=== PATIENT | female | born 1985 | race Caucasian/White ===

== ENCOUNTER 2018-09-28 15:42 | Inpatient (IN) | payer BC ==
[~2018-09-28] VITALS: Ht 154.9 cm; Wt 88.9 kg
[2018-09-28] MEDS ORDERED: LR 1,000 ML IV ONE (16:11)
[2018-09-28] MEDS ORDERED: CEFAZOLIN 2 GM IVPB PREMIX 50 ML IV ONE ×2 (16:15→17:30)
[2018-09-28 16:48] LABS: BILIRUBIN,URINE NEGATIVE (NEGATIVE); CLARITY/URINE CLEAR (CLEAR); COLOR,URINE YELLOW (YELLOW); GLUCOSE,URINE NEGATIVE (NEGATIVE); KETONES,URINE NEGATIVE (NEGATIVE); LEUKOCYTE ESTERASE ,URINE 1+ (NEGATIVE); NITRITE, URINE NEGATIVE (NEGATIVE); PH,URINE 5.5 (5.0-8.0); PROTEIN URINE NEGATIVE (NEGATIVE); UROBILINOGEN,URINE 0.2 (0.2-1.0)
[2018-09-28 16:50] LABS: BLOOD, URINE TRACE (NEGATIVE)
[2018-09-28 16:57] LABS: BASOPHILS % (AUTO) 0.3 % (0.0-2.0); EOSINOPHILS % (AUTO) 0.5 % (0.0-4.0); HEMATOCRIT 28.7 % (36-48); HEMOGLOBIN 9.3 g/dL (12.0-16.0); LYMPHOCYTES % (AUTO) 14.4 % (20.5-51.5); MEAN CORPUSCULAR HEMOGLOBIN 23 pg (27-31); MEAN CORPUSCULAR HGB CONC 32 % (32-36); MEAN CORPUSCULAR VOLUME 73 fL (79.0-98.0); MONOCYTES % (AUTO) 5.6 % (1.7-9.3); NEUTROPHILS # (AUTO) 7.1 K/uL (1.8-7.7); NEUTROPHILS % (AUTO) 79.2 % (40.0-70.0); PLATELET COUNT (AUTO) 376 K/uL (130-430); RED BLOOD CELL COUNT(AUTO) 3.95 MIL/uL (4.2-6.2); RED CELL DISTRIBUTION WIDTH 15.5 % (9.0-15.0)
[2018-09-28 16:58] LABS: LYMPHOCYTES # (AUTO) 1.3 K/uL (1.0-5.5); MONOCYTES # (AUTO) 0.5 K/uL (0.0-1.0)
[2018-09-28 17:02] LABS: BACTERIA,URINE FEW /HPF (None Seen)
[2018-09-28] MEDS ORDERED: ONDANSETRON HCL 4 MG/2 ML VIAL IVP ONE (17:30)
[2018-09-28] MEDS ORDERED: OXYTOCIN 10 UNIT/ML VIAL IV ONE (17:30)
[2018-09-28] MEDS ORDERED: MORPHINE SULFATE 10MG/10ML PF AMP EP ONE (17:30)
[2018-09-28] MEDS ORDERED: LR 1,000 ML IV.SOLN IV ONE (17:30)
[2018-09-28] MEDS ORDERED: MIDAZOLAM HCL 5 MG/5 ML VIAL IVP ONE (17:30)
[2018-09-28] MEDS ORDERED: METHYLERGONOVINE MALEATE 0.2 MG/ML AMP IM ONE (17:30)
[2018-09-28] MEDS ORDERED: PROPOFOL 200MG/ 20ML VIAL (DIPRIVAN) IV ONE (17:30)
[2018-09-28] MEDS ORDERED: NS IRRIG SOLN 1000 ML IR ONE (17:30)
[2018-09-28] MEDS ORDERED: fentaNYL CITRATE 250 MCG/5 ML AMP IV ONE (17:30)
[2018-09-28] MEDS ORDERED: SUGAMMADEX SODIUM 200 MG/2 ML VIAL IV ONE (17:30)
[2018-09-28] MEDS ORDERED: SEVOFLURANE 15 MIN GAS INH ONE (17:30)
[2018-09-28] MEDS ORDERED: ROCURONIUM BROMIDE 10 MG/ML (ZEMURON) IV ONE (17:30)
[2018-09-28] MEDS ORDERED: LR 1,000 ML IV SCH ×2 (19:01→19:14)
[2018-09-28] MEDS ORDERED: OXYTOCIN/0.9 % SODIUM CHLORIDE 1,000 ML IV ONE (19:14)
[2018-09-28] MEDS ORDERED: DIPH-TET-PERTUS Vaccine 0.5 ML VIAL (ADACEL) I.M. PRN (19:15)
[2018-09-28] MEDS ORDERED: ONDANSETRON HCL 4 MG/2 ML VIAL IVP PRN ×2 (19:15→19:30)
[2018-09-28] MEDS ORDERED: BISACODYL 10 MG/SUPPOSITORY RC PRN (19:15)
[2018-09-28] MEDS ORDERED: MORPHINE SULFATE 10 MG/ML VIAL IVP PRN (19:15)
[2018-09-28] MEDS ORDERED: ANUSOL 1 EA SUPP.RECT (PREPARATION H) RC PRN (19:15)
[2018-09-28] MEDS ORDERED: MEASLES,MUMPS&RUBELLA VACC/PF 12500 UNIT/0.5 ML VIAL SUBQ PRN (19:15)
[2018-09-28] MEDS ORDERED: MORPHINE 4 MG/ML INJ. SYRINGE IVP PRN ×2 (19:15)
[2018-09-28] MEDS ORDERED: SENNOSIDES/DOCUSATE SODIUM 1 TAB TABLET(SENOKOT-S) PO PRN (19:15)
[2018-09-28] MEDS ORDERED: LANOLIN 7 GM OINT. TP PRN (19:15)
[2018-09-28] MEDS: MORPHINE 4 MG/ML INJ. SYRINGE IVP PRN ×2 (19:51→20:10)
[2018-09-28] MEDS ORDERED: MORPHINE 4 MG/ML INJ. SYRINGE ONE (19:57)
[2018-09-28] MEDS ORDERED: ONDANSETRON HCL 4 MG/2 ML VIAL ONE (19:57)
[2018-09-28] MEDS ORDERED: MORPHINE SULFATE 10 MG/ML VIAL IM PRN (20:00)
[2018-09-28] MEDS ORDERED: TEMAZEPAM 15 MG CAPSULE PO PRN (21:00)
[2018-09-28 21:26] VITALS: BP_SYST 133
[2018-09-29] MEDS ORDERED: KETOROLAC TROMETHAMINE 30 MG VIAL IM SCH
[2018-09-29] MEDS: KETOROLAC TROMETHAMINE 30 MG VIAL IVP SCH ×2 (00:37→05:58)
[2018-09-29 05:38] VITALS: BP_SYST 135
[2018-09-29] MEDS ORDERED: OXYCODONE/ACETAMINOPHEN 5-325 TABLET PO PRN (07:00)
[2018-09-29 07:32] LABS: MEAN CORPUSCULAR HEMOGLOBIN 24 pg (27-31); MEAN CORPUSCULAR VOLUME 73 fL (79.0-98.0); RED BLOOD CELL COUNT(AUTO) 2.78 MIL/uL (4.2-6.2); WHITE BLOOD COUNT (AUTO) 9.5 K/uL (4.8-10.8)
[2018-09-29 07:33] LABS: BASOPHILS % (AUTO) 0.5 % (0.0-2.0); EOSINOPHILS % (AUTO) 0.5 % (0.0-4.0); LYMPHOCYTES % (AUTO) 12.7 % (20.5-51.5); MEAN CORPUSCULAR HGB CONC 32 % (32-36); MONOCYTES % (AUTO) 6.5 % (1.7-9.3); PLATELET COUNT (AUTO) 292 K/uL (130-430); RED CELL DISTRIBUTION WIDTH 15.8 % (9.0-15.0)
[2018-09-29 07:34] LABS: LYMPHOCYTES # (AUTO) 1.2 K/uL (1.0-5.5); MONOCYTES # (AUTO) 0.6 K/uL (0.0-1.0); NEUTROPHILS # (AUTO) 7.6 K/uL (1.8-7.7)
[2018-09-29 07:36] LABS: HEMOGLOBIN 6.6 g/dL (12.0-16.0)
[2018-09-29 07:37] LABS: HEMATOCRIT 20.3 % (36-48); NEUTROPHILS % (AUTO) 79.8 % (40.0-70.0)
[2018-09-29] MEDS ORDERED: DIPHENHYDRAMINE HCL 12.5 MG/5 ML UDC NG ONE (07:45)
[2018-09-29] MEDS ORDERED: DIPHENHYDRAMINE INJ 50 MG/ML VIAL IVP ONE (08:30)
[2018-09-29] MEDS: IBUPROFEN 600 MG TABLET PO SCH ×3 (12:15→23:49)
[2018-09-29] MEDS: OXYCODONE/ACETAMINOPHEN 5-325 TABLET PO PRN ×2 (13:15→18:44)
[2018-09-29] MEDS: SIMETHICONE 80 MG TAB.CHEW PO PRN (17:57)
[2018-09-29] MEDS: FERROUS SULFATE 325 MG TABLET.DR PO SCH (21:00)
[2018-09-29] MEDS: DOCUSATE SODIUM 100 MG CAPSULE PO PRN (21:02)
[2018-09-30] MEDS: IBUPROFEN 600 MG TABLET PO SCH ×3 (05:45→18:06)
[2018-09-30 08:17] LABS: WHITE BLOOD COUNT (AUTO) 10.1 K/uL (4.8-10.8)
[2018-09-30 08:18] LABS: HEMOGLOBIN 7.2 g/dL (12.0-16.0); MEAN CORPUSCULAR HEMOGLOBIN 25 pg (27-31); MEAN CORPUSCULAR HGB CONC 33 % (32-36); MEAN CORPUSCULAR VOLUME 77 fL (79.0-98.0); PLATELET COUNT (AUTO) 260 K/uL (130-430); RED BLOOD CELL COUNT(AUTO) 2.83 MIL/uL (4.2-6.2); RED CELL DISTRIBUTION WIDTH 14.4 % (9.0-15.0)
[2018-09-30 08:19] LABS: BASOPHILS % (AUTO) 0.4 % (0.0-2.0); EOSINOPHILS # (AUTO) 0.2 K/uL (0.0-0.4); EOSINOPHILS % (AUTO) 1.6 % (0.0-4.0); LYMPHOCYTES # (AUTO) 1.7 K/uL (1.0-5.5); LYMPHOCYTES % (AUTO) 17.3 % (20.5-51.5); MONOCYTES # (AUTO) 0.7 K/uL (0.0-1.0); MONOCYTES % (AUTO) 7.4 % (1.7-9.3); NEUTROPHILS # (AUTO) 7.4 K/uL (1.8-7.7); NEUTROPHILS % (AUTO) 73.3 % (40.0-70.0)
[2018-09-30 08:20] LABS: HEMATOCRIT 21.7 % (36-48)
[2018-09-30] MEDS: OXYCODONE/ACETAMINOPHEN 5-325 TABLET PO PRN ×3 (08:59→18:06)
[2018-09-30] MEDS: FERROUS SULFATE 325 MG TABLET.DR PO SCH (09:00)
[2018-09-30] MEDS: DOCUSATE SODIUM 100 MG CAPSULE PO PRN (09:00)
[2018-09-30] MEDS: SIMETHICONE 80 MG TAB.CHEW PO PRN ×2 (09:00→13:29)
[2018-10-01] MEDS: OXYCODONE/ACETAMINOPHEN 5-325 TABLET PO PRN (03:40)
[2018-10-01] MEDS: DOCUSATE SODIUM 100 MG CAPSULE PO PRN (11:50)
[2018-10-01] MEDS: FERROUS SULFATE 325 MG TABLET.DR PO SCH (11:50)
[2018-10-01] MEDS: IBUPROFEN 600 MG TABLET PO SCH (11:51)
== END 2018-10-01 13:40 | disposition home or self-care (01) | DRG 788 ==
LOC: OBSVTOIN 15:42 → SPU 15:42
PROVIDERS: ADMIT Obstetrics & Gynecology; ATTEND Obstetrics & Gynecology
PROC: 10D00Z1 Extraction of Products of Conception, Low, Open Approach (ICD-10-PCS; principal; 2018-09-28 17:30)
PROC: 30233N1 Transfusion of Nonautologous Red Blood Cells into Peripheral Vein, Percutaneous Approach (ICD-10-PCS; 2018-09-29)
DX: O34.211 Maternal care for low transverse scar from previous cesarean delivery (principal); O69.81X0 Labor and delivery complicated by cord around neck, without compression, not applicable or unspecified; O99.02 Anemia complicating childbirth; J45.909 Unspecified asthma, uncomplicated; D64.9 Anemia, unspecified; O99.52 Diseases of the respiratory system complicating childbirth; Z37.0 Single live birth; Z3A.38 38 weeks gestation of pregnancy; Z83.3 Family history of diabetes mellitus
CPT/HCPCS: 36415; 81000-TC; 85025; 86592; 86886; 86900; 86901; 86920; 87086; 94760; C9399; J0690; J1200; J1885; J2210; J2250; J2270; J2274; J2405; J2590; J2704; J3010; J7120; P9021